=== PATIENT | female | born 1985 | race Two or more races ===

== ENCOUNTER 2022-09-08 14:01 | Inpatient (IN) | payer MEDICAID, OTHER ==
[~2022-09-08] VITALS: Ht 152.4 cm; Wt 82.3 kg
[2022-09-08 14:55] LABS: Albumin 2.9 g/dL (3.4-5.0); BUN/Creatinine Ratio 5.3 (10.0-20.0); Calcium 7.7 mg/dL (8.5-10.1)
[2022-09-08 14:58] LABS: Bilirubin, Total 0.1 mg/dL (0.2-1.0); Total Protein 6.2 g/dL (6.4-8.2)
[2022-09-08 15:15] LABS: Basophils # (auto) 0 10 ^3/uL (0-0.2); Eosinophils # (auto) 0 10 ^3/uL (0-0.8); Eosinophils % (auto) 0.4 % (0.0-7.0); Hematocrit 16.7 % (36.0-46.0); Lymphocytes # (auto) 2.4 10 ^3/uL (0.4-5.4); Monocytes # (auto) 0.4 10 ^3/uL (0-1.3); Nucleated Red Blood Cells % 0.1 %; Red Blood Cells 1.79 10^6/uL (4.0-5.20)
[2022-09-08 15:17] LABS: Basophils % (auto) 0.4 % (0.0-2.0); Lymphocytes % (auto) 22.9 % (10.0-50.0); Mean Corpuscular Hemoglobin 31.2 pg (28.0-32.0); Mean Corpuscular Hgb Conc. 33.3 g/dL (32.0-36.0); Mean Corpuscular Volume 93.5 fL (80.0-100.0); Monocytes % (auto) 3.4 % (0.0-12.0); Neutrophils # (auto) 7.7 10 ^3/uL (1.6-8.6); Neutrophils % (auto) 72.9 % (37.0-80.0); Red Cell Distribution Width 14.4 % (11.8-14.3); White Blood Cell 10.6 10^3/uL (4.4-10.8)
[2022-09-08] MEDS ORDERED: SODIUM CHLORIDE 0.9% 500 ML IV ONE (15:30)
[2022-09-08 15:51] LABS: Hemoglobin 5.6 g/dL (12.2-16.2)
[2022-09-08 16:13] VITALS: PULSE 101; RESP 20; O2SAT 96
[2022-09-08 16:25] LABS: INR 1.04 (0.9-1.15); Partial Thromboplastin Time 21.1 SEC (24.5-34.5)
[2022-09-08 16:50] LABS: Urine Bacteria FEW /hpf (None Seen); Urine Blood 3+ /uL (Negative); Urine Mucus FEW (None Seen); Urine Specific Gravity 1.009 (1.001-1.035); Urine WBC 12 /hpf (0 - 5)
[2022-09-08] MEDS ORDERED: POTASSIUM EFFERVESENT TAB 25 MEQ PO ONE (17:45)
[2022-09-08] MEDS ORDERED: ACETAMINOPHEN 325 MG TAB PO PRN (18:00)
[2022-09-08] MEDS ORDERED: DOCUSATE SOD 100 MG CAP PO PRN (18:00)
[2022-09-08] MEDS ORDERED: ONDANSETRON HCL 4 MG/2 ML VIAL IV PRN (18:00)
[2022-09-08 19:40] VITALS: PULSE 106; RESP 16; O2SAT 100
[2022-09-08 19:41] VITALS: BP 113/60; PULSE 99; RESP 16; TEMP 98.2
[2022-09-08 19:56] VITALS: BP 113/60; PULSE 104; RESP 12; TEMP 98.2
[2022-09-08] MEDS: SODIUM CHLOR 0.9% PF (SALINE LOCK) 10ML VIAL/SYR IV SCH (22:14)
[2022-09-08 22:15] VITALS: BP 109/66; PULSE 98; RESP 16; TEMP 98.3
[2022-09-09] VITALS (9 sets, daily range): BP systolic 82–115; BP diastolic 33–62; PULSE 83–103; RESP 13–21; TEMP 98.3–99.8; O2SAT 98–100
[2022-09-09] MEDS: SODIUM CHLOR 0.9% PF (SALINE LOCK) 10ML VIAL/SYR IV SCH ×3 (06:05→21:47)
[2022-09-09 06:28] LABS: Basophils # (auto) 0 10 ^3/uL (0-0.2); Basophils % (auto) 0.4 % (0.0-2.0); Eosinophils # (auto) 0.1 10 ^3/uL (0-0.8); Eosinophils % (auto) 0.8 % (0.0-7.0); Hemoglobin 7.4 g/dL (12.2-16.2); Lymphocytes # (auto) 2.8 10 ^3/uL (0.4-5.4); Mean Corpuscular Hemoglobin 29.7 pg (28.0-32.0); Mean Corpuscular Hgb Conc. 33.8 g/dL (32.0-36.0); Mean Corpuscular Volume 87.8 fL (80.0-100.0); Monocytes # (auto) 0.5 10 ^3/uL (0-1.3); Monocytes % (auto) 5.8 % (0.0-12.0); Neutrophils # (auto) 5.6 10 ^3/uL (1.6-8.6); Nucleated Red Blood Cells % 0.2 %; Red Cell Distribution Width 15.5 % (11.8-14.3)
[2022-09-09 06:59] LABS: Albumin 2.5 g/dL (3.4-5.0); Calcium 7.5 mg/dL (8.5-10.1); Potassium 3.2 mmol/L (3.5-5.1)
[2022-09-09 07:02] LABS: Bilirubin, Total 0.8 mg/dL (0.2-1.0); Total Protein 5.5 g/dL (6.4-8.2)
[2022-09-09] MEDS ORDERED: ARIP2TAB PO (18:08)
[2022-09-09] MEDS ORDERED: ESCI1TAB36 PO (18:08)
[2022-09-09] MEDS ORDERED: HYDR-3682 PO (18:08)
[2022-09-09] MEDS: HYDROcodone-ACET 5/325MG TAB PO PRN (19:00)
[2022-09-09] MEDS ORDERED: MEDR10TA9 PO (19:33)
[2022-09-10] VITALS (10 sets, daily range): BP systolic 93–111; BP diastolic 45–66; PULSE 56–94; RESP 16–19; TEMP 98.1–98.7; O2SAT 98–100
[2022-09-10] MEDS: SODIUM CHLOR 0.9% PF (SALINE LOCK) 10ML VIAL/SYR IV SCH ×3 (05:54→21:30)
[2022-09-10] MEDS: ESTROGENS, CONJUGATED 25 MG VIAL IM SCH ×3 (06:00→13:00)
[2022-09-10] MEDS: LEXAPRO 10 MG PO SCH (10:00)
[2022-09-10 10:23] LABS: Basophils # (auto) 0.1 10 ^3/uL (0-0.2); Basophils % (auto) 0.6 % (0.0-2.0); Eosinophils # (auto) 0.2 10 ^3/uL (0-0.8); Eosinophils % (auto) 1.7 % (0.0-7.0); Hematocrit 25.9 % (36.0-46.0); Hemoglobin 8.8 g/dL (12.2-16.2); Lymphocytes # (auto) 2.2 10 ^3/uL (0.4-5.4); Lymphocytes % (auto) 24.1 % (10.0-50.0); Mean Corpuscular Hgb Conc. 33.8 g/dL (32.0-36.0); Mean Corpuscular Volume 88.8 fL (80.0-100.0); Monocytes # (auto) 0.5 10 ^3/uL (0-1.3); Monocytes % (auto) 4.9 % (0.0-12.0); Neutrophils # (auto) 6.4 10 ^3/uL (1.6-8.6); Neutrophils % (auto) 68.7 % (37.0-80.0); Nucleated Red Blood Cells % 0.2 %; Red Blood Cells 2.92 10^6/uL (4.0-5.20); Red Cell Distribution Width 14.9 % (11.8-14.3); White Blood Cell 9.3 10^3/uL (4.4-10.8)
[2022-09-10] MEDS ORDERED: POTASSIUM CHL 20 Meq TABLET PO ONE ×2 (13:00→17:15)
[2022-09-10] MEDS: HYDROcodone-ACET 5/325MG TAB PO PRN (16:07)
[2022-09-10] MEDS: FERROUS SULFATE 300 MG/5 ML ORAL LIQ PO SCH (18:38)
[2022-09-11 05:00] VITALS: BP 96/60; PULSE 74; RESP 16; TEMP 97.3; O2SAT 98
[2022-09-11] MEDS: SODIUM CHLOR 0.9% PF (SALINE LOCK) 10ML VIAL/SYR IV SCH (05:34)
[2022-09-11 05:40] LABS: Hematocrit 23.9 % (36.0-46.0)
[2022-09-11 05:42] LABS: Hemoglobin 8.2 g/dL (12.2-16.2)
[2022-09-11 05:50] LABS: Calcium 7.7 mg/dL (8.5-10.1); Potassium 4.1 mmol/L (3.5-5.1)
[2022-09-11 05:54] LABS: Magnesium 2.5 mg/dL (1.6-2.6)
[2022-09-11 08:00] VITALS: BP 110/57; PULSE 78; PULSE 88; RESP 16; TEMP 98.2; O2SAT 96
[2022-09-11] MEDS ORDERED: LEVOTAB9 PO (09:35)
[2022-09-11] MEDS ORDERED: ASCO1TAB27 PO (09:35)
[2022-09-11] MEDS ORDERED: FERR-7 PO (09:35)
[2022-09-11] MEDS: FERROUS SULFATE 300 MG/5 ML ORAL LIQ PO SCH (10:41)
[2022-09-11] MEDS: HYDROcodone-ACET 5/325MG TAB PO PRN (10:41)
[2022-09-11] MEDS: LEXAPRO 10 MG PO SCH (10:41)
[2022-09-11] MEDS: ESTROGENS, CONJUGATED 25 MG VIAL IM SCH (10:43)
== END 2022-09-11 12:00 | disposition home or self-care (01) | DRG 663 ==
LOC: ER 14:01 → TELE 18:09 → TELE-WESTW 09-09 17:15
PROVIDERS: ADMIT Obstetrics & Gynecology; ATTEND Hospitalist
PROC: 30233N1 Transfusion of Nonautologous Red Blood Cells into Peripheral Vein, Percutaneous Approach (ICD-10-PCS; principal; 2022-09-08)
DX: D64.9 Anemia, unspecified (principal); E43 Unspecified severe protein-calorie malnutrition; N85.2 Hypertrophy of uterus; N93.9 Abnormal uterine and vaginal bleeding, unspecified; Z88.0 Allergy status to penicillin
CPT/HCPCS: 36415; 76856; 80048; 80053; 81001; 81025; 82728; 83540; 83550; 83735; 85014; 85018; 85025; 85610; 85730; 86850; 86900; 86901; 86920; G0378; J2405